=== PATIENT | male | born 1980 | race Caucasian/White ===

== ENCOUNTER 2017-06-29 09:28 | Inpatient (IN) | payer MEDICARE, OTHER ==
[~2017-06-29] VITALS: Ht 182.9 cm; Wt 84.2 kg
[~2017-06-29 09:28] MED LIST: ARIP1TAB5 PO; OXCA300 PO; OXCA600 PO; WELL150T PO
[2017-06-29 09:29] VITALS: BP 125/77; PULSE 98; RESP 18; TEMP 98.4; O2SAT 96
--- NOTE | 2017-06-29 09:46 | PD ---
HPI Chief Complaint: Psychiatric Symptoms Time Seen by Provider: 09:38 Travel History International Travel<30 days: No Contact w/Intl Traveler<30days: No Traveled to known affect area: No History of Present Illness HPI 36-year-old male presents voluntarily for psychiatric evaluation. He has been having major depression since December after losing his kids and his fiance. His kids are in an orphanage and his fiance left him. He has history of schizoaffective disorder and bipolar. He supposed be taking Zyprexa and Trileptal which she takes periodically because he doesn't want to mix it with all the alcohol he has been consuming. He says he drinks morning, noon and night everyday. Also admits to cocaine use and last used a few days ago. Reports suicidal ideation. Denies having a plan. Denies homicidal ideations. Denies visual or auditory hallucinations. Symptoms are alleviated with alcohol and cocaine use. Character of symptoms his depression and suicidal thoughts. Degree of symptoms as moderate to severe. Exacerbating factor is losing his kids and his fiance. No relieving factors. Denies significant past medical history. Has no emergent medical complaints. Denies chest pain, shortness breath, abdominal pain, fevers, vomiting. No other modifying factors or associated signs and symptoms. PFSH Past Medical History Asthma: No Bipolar Disorder: Yes Anxiety: Yes Depression: Yes Cancer: No Cardiovascular Problems: No Diabetes: No Diminished Hearing: No Endocrine: No Gastrointestinal Disorders: No Genitourinary: No Immune Disorder: No Implanted Vascular Access Dvce: No Insomnia: Yes Musculoskeletal: No Neurologic: No Psychiatric: Yes (BIPOLAR) Reproductive: No Respiratory: No Seizures: No Social History Alcohol Use: Yes (PT ADMITS TO DRINKING 5-6 BEERS DAILY, DRANK LAST NIGHT) Tobacco Use: Yes (Occassionally) Substance Use: No (DENIES) Allergies-Medications (Allergen,Severity, Reaction): Coded Allergies: No Known Allergies (Unverified , 12/20/13) Per pt. Reported Meds & Prescriptions Reported Meds & Active Scripts Active Reported Wellbutrin Sr (Bupropion HCl) 150 Mg Tab 150 Mg PO BID Trileptal 600 Mg Tab (Oxcarbazepine) 600 Mg Tab 600 Mg PO HS Trileptal 300 Mg Tab (Oxcarbazepine) 300 Mg Tab 300 Mg PO DAILY 30 Days Abilify (Aripiprazole) 10 Mg Tab 10 Mg PO BID Review of Systems Except as stated in HPI: all other systems reviewed are Neg Physical Exam Narrative GENERAL: Well-nourished, well-developed male patient, in no acute distress SKIN: Warm and dry. HEAD: Atraumatic. Normocephalic. EYES: Pupils equal and round. ENT: Mucosa pink and moist. NECK: Supple. Trachea midline. CARDIOVASCULAR: Regular rate and rhythm. No murmur appreciated. RESPIRATORY: No accessory muscle use. Clear to auscultation. Breath sounds equal bilaterally. GASTROINTESTINAL: Abdomen soft, non-tender, nondistended. Hepatic and splenic margins not palpable. Bowel sounds are active 4 quadrants. MUSCULOSKELETAL: No obvious deformities. No clubbing. No cyanosis. No edema. NEUROLOGICAL: Awake and alert. Oriented 3. No obvious cranial nerve deficits. Motor grossly within normal limits. Normal speech. Moves all extremities. 5/5 strength to all extremities. PSYCHIATRIC: No delusional thought processes. No hallucinations. Data Data Last Documented VS Vital Signs Date Time Temp Pulse Resp B/P (MAP) Pulse Ox O2 Delivery O2 Flow Rate FiO2 06/29/17 09:29 98.4 98 18 125/77 (93) 96 Room Air Orders Orders Complete Blood Count With Diff (06/29/17 09:39) Comprehensive Metabolic Panel (06/29/17 09:39) Psych Screen (06/29/17 09:39) Drug Screen, Random Urine (06/29/17 09:39) Alcohol (Ethanol) (06/29/17 09:39) Salicylates (Aspirin) (06/29/17 09:39) Tylenol (Acetaminophen) (06/29/17 09:39) MDM Medical Decision Making Medical Screen Exam Complete: Yes Emergency Medical Condition: Yes Medical Record Reviewed: Yes Differential Diagnosis Alcohol abuse, depression, bipolar, schizoaffective disorder, cocaine abuse, medical clearance for psychiatric evaluation Narrative Course Patient presents voluntarily. Physical examination and vital signs are essentially unremarkable. Patient has no medical complaints to report. Psych screen has been ordered. If the laboratory results are unremarkable, the patient will be medically cleared for psychiatric evaluation and disposition. Diagnosis Primary Impression: Medical clearance for psychiatric admission Condition: Stable Maame Herndon Jun 29, 2017 09:46
[2017-06-29] MEDS ORDERED: TRIL300T PO (10:00)
[2017-06-29] MEDS ORDERED: ZYPR10TA PO (10:00)
[2017-06-29 10:25] LABS: AUTOMATED NEUTROPHIL # 4.7 TH/MM3 (1.8-7.7); BASOPHIL % 0.3 % (0.0-2.0); EOSINOPHIL % 0.6 % (0.0-4.0); HEMATOCRIT 51.7 % (39.0-51.0); HEMOGLOBIN 17.6 GM/DL (13.0-17.0); LYMPH % 26.1 % (9.0-44.0); LYMPHOCYTE # 1.8 TH/MM3 (1.0-4.8); MEAN CELL VOLUME 92.6 FL (80.0-100.0); MEAN CORPUSCULAR HEMOGLOBIN 31.4 PG (27.0-34.0); MEAN PLATELET VOLUME 7.3 FL (7.0-11.0); MONO % 6.4 % (0.0-8.0); MONOCYTE # 0.5 TH/MM3 (0-0.9); NEUT % 66.6 % (16.0-70.0); PLATELET COUNT 261 TH/MM3 (150-450); RED BLOOD COUNT 5.58 MIL/MM3 (4.50-5.90); RED CELL DISTRIBUTION WIDTH 12.4 % (11.6-17.2)
[2017-06-29 10:43] LABS: ALBUMIN 4.3 GM/DL (3.4-5.0); AST (GOT) 25 U/L (15-37); BICARBONATE 27.1 MEQ/L (21.0-32.0); BLOOD UREA NITROGEN 13 MG/DL (7-18); CALCIUM 9.4 MG/DL (8.5-10.1); CHLORIDE 103 MEQ/L (98-107); CREATININE 1.12 MG/DL (0.60-1.30); GLOMERULAR FILTRATION RATE 74 ML/MIN (>89); GLUCOSE,RANDOM 82 MG/DL (74-106); SODIUM (NA) 138 MEQ/L (136-145)
[2017-06-29 10:46] LABS: ALKALINE PHOSPHATASE 92 U/L (45-117); ALT (GPT) 34 U/L (12-78); TOTAL BILIRUBIN ADULT 0.8 MG/DL (0.2-1.0); TOTAL PROTEIN 8.5 GM/DL (6.4-8.2)
[2017-06-29 10:49] LABS: ACETAMINOPHEN LESS THAN 2.0 MCG/ML (10.0-30.0)
[2017-06-29 12:37] VITALS: BP 125/80; PULSE 95; RESP 16; TEMP 98.5; O2SAT 98
[2017-06-29] MEDS ORDERED: cloNIDine HCL 0.1 MG TAB PO ONE (16:15)
[2017-06-29] MEDS ORDERED: hydrOXYzine HCL 50 MG TAB PO ONE (16:15)
[2017-06-29] MEDS ORDERED: LORazepam 2 MG/ML VIAL IM PRN (16:30)
[2017-06-29] MEDS ORDERED: MAGNESIUM HYDROXIDE SUSP 30 ML CUP PO PRN (16:30)
[2017-06-29] MEDS ORDERED: ACETAMINOPHEN 325 MG TAB PO PRN (16:30)
[2017-06-29] MEDS ORDERED: ALUMINUM/MAGNESIUM/SIMETH 30 ML CUP PO PRN (16:30)
[2017-06-29] MEDS ORDERED: hydrOXYzine HCL 50 MG TAB PO PRN (16:30)
[2017-06-29] MEDS ORDERED: traZODone HCL 50 MG TAB PO PRN (16:30)
--- NOTE | 2017-06-29 16:31 | HHI.HP ---
Provisional Diagnosis Admission Date [place] I. Adjustment disorder with depressed mood Certification of Person's Competence To Provide Express and Informed Consent I have personally examined Adalberto Scott , a person being served at [facility] on, Jun 29, 2017 16:21. Express and informed consent means consent voluntarily given in writing, by a competent person, after sufficient explanation and disclosure of the subject matter involved to enable the person to make a knowing and willful decision without any element of force, fraud, deceit, duress, or other form of constraint or coercion. This person is 18 years of age or older, is not now known to be incompetent to consent to treatment with a guardian advocate, and does not have a health care surrogate or proxy currently making medical treatment decisions. I have found this person to be one of the following: [X] Competent to provide express and informed consent, as defined above, for voluntary admission to this facility and is competent to provide express and informed consent for treatment. He/she has the consistent capacity to make well reasoned, willful, and knowing decisions concerning his or her medical or mental health treatment. The person fully and consistently understands the purpose of the admission for examination/placement and is fully capable of personally exercising all rights assured [place] Incompetent to provide express and informed consent to voluntary admission, and this is incompetent to provide express and informed consent to treatment. The person must be transferred to involuntary status and a petition for a guardian advocate filed with the Circuit Court. [] Refusing to provide express and informed consent to voluntary admission but is competent to provide express and informed consent for treatment. The person must be discharged or transferred to involuntary status. Form shall be completed within 24 hours of a person's arrival at the receiving facility and filed in the clinical record of each person: 1. Admitted on a voluntary basis 2. Permitted to provide express and informed consent to his/her own treatment 3. Allowed to transfer from involuntary to voluntary status 4. Prior to permitting a person to consent to his or her own treatment after having been previously found incompetent to consent to treatment. History of Present Illness Capacity: Has Capacity HPI 36-year-old male presents voluntarily with history of schizoaffective disorder, bipolar disorder, major depression, etc. At this time the patient is complaining of multiple symptoms of depression with suicidal ideation. Although he does not have an active plan to harm himself, he reports if released he may attempt to overdose on his medication, walk into traffic, overdose on alcohol and drugs, etc. The patient moved from [place] to [place] approximately one month ago. He lost his children, who are currently staying in an orphanage and his fiance left him. He thought he might feel better by moving to [place], but that has not been the case. In fact, he describes increasing symptoms of depression over the last month, which include depressed mood, anhedonia, loss of energy, feelings of hopelessness and helplessness, increasing anxiety, initial and middle insomnia, loss of appetite, loss of self- esteem and suicidal thoughts. He is unable to contract for safety at this time. He has been self-medicating over the last month with an average of 8 beers a day and intermittent use of cocaine. He is not employed but receives some type of disability check and some financial assistance from his father, who remains in [place]. Review of Systems Psychiatric: COMPLAINS OF: Anxiety, Depression, Suicidal Ideation Except as stated in HPI: all other systems reviewed are Neg Past Psych History Psychological trauma history Patient feels psychologically traumatized from losing his children and his fianc e. Violence risk - others (6 mos) Minimal Violence risk - self (6 mos) High Substance Abuse History Drugs/Alcohol past 12 months Intermittent abuse of alcohol and cocaine. Past Family Social History Coded Allergies: No Known Allergies (Unverified Adverse Reaction, Unknown, 06/29/17) Per pt. Reported Medications Olanzapine (Zyprexa) 10 Mg Tab, 10 MG PO HS, #30 TAB 0 Refills 06/29/17 Oxcarbazepine (Trileptal) 300 Mg Tab, 300 MG PO BID for Seizure Control, #60 TAB 0 Refills 06/29/17 Discontinued Reported Medications Bupropion Hcl (Wellbutrin Sr) 150 Mg Tab, 150 MG PO BID, TAB 01/06/14 Oxcarbazepine (Trileptal 600 Mg Tab) 600 Mg Tab, 600 MG PO HS, TAB 01/06/14 Oxcarbazepine (Trileptal 300 Mg Tab) 300 Mg Tab, 300 MG PO DAILY for 30 Days, TAB 01/06/14 Abilify (Abilify) 10 Mg Tab, 10 MG PO BID, TAB 01/06/14 Family Psych History Positive for mood and anxiety disorders. Social History As stated above, the patient is abusing alcohol and cocaine at the present time. His only family support is his father, who currently resides in [place]. The patient was never but his fianc has left him. He has to young children who are in the custody of the state of [place]. He is unemployed and dependent on his father for financial support. Patient's Strengths (min. 2) Verbal and has access to healthcare. Physical Exam GENERAL: SKIN: Warm and dry. HEAD: Normocephalic. EYES: No scleral icterus. No injection or drainage. NECK: Supple, trachea midline. No JVD or lymphadenopathy. CARDIOVASCULAR: Regular rate and rhythm without murmurs, gallops, or rubs. RESPIRATORY: Breath sounds equal bilaterally. No accessory muscle use. GASTROINTESTINAL: Abdomen soft, non-tender, nondistended. MUSCULOSKELETAL: No cyanosis, or edema. BACK: Nontender without obvious deformity. No CVA tenderness. Vital Signs Vital Signs Date Time Temp Pulse Resp B/P (MAP) Pulse Ox O2 Delivery O2 Flow Rate FiO2 06/29/17 12:37 98.5 95 16 125/80 (95) 98 06/29/17 09:29 Room Air Lab Results Test 06/29/17 10:00 06/29/17 10:05 White Blood Count 7.0 TH/MM3 Red Blood Count 5.58 MIL/MM3 Hemoglobin 17.6 GM/DL Hematocrit 51.7 % Mean Corpuscular Volume 92.6 FL Mean Corpuscular Hemoglobin 31.4 PG Mean Corpuscular Hemoglobin Concent 34.0 % Red Cell Distribution Width 12.4 % Platelet Count 261 TH/MM3 Mean Platelet Volume 7.3 FL Neutrophils (%) (Auto) 66.6 % Lymphocytes (%) (Auto) 26.1 % Monocytes (%) (Auto) 6.4 % Eosinophils (%) (Auto) 0.6 % Basophils (%) (Auto) 0.3 % Neutrophils # (Auto) 4.7 TH/MM3 Lymphocytes # (Auto) 1.8 TH/MM3 Monocytes # (Auto) 0.5 TH/MM3 Eosinophils # (Auto) 0.0 TH/MM3 Basophils # (Auto) 0.0 TH/MM3 CBC Comment DIFF FINAL Differential Comment Blood Urea Nitrogen 13 MG/DL Creatinine 1.12 MG/DL Random Glucose 82 MG/DL Total Protein 8.5 GM/DL Albumin 4.3 GM/DL Calcium Level 9.4 MG/DL Alkaline Phosphatase 92 U/L Aspartate Amino Transf (AST/SGOT) 25 U/L Alanine Aminotransferase (ALT/SGPT) 34 U/L Total Bilirubin 0.8 MG/DL Sodium Level 138 MEQ/L Potassium Level 4.2 MEQ/L Chloride Level 103 MEQ/L Carbon Dioxide Level 27.1 MEQ/L Anion Gap 8 MEQ/L Estimat Glomerular Filtration Rate 74 ML/MIN Salicylates Level LESS THAN 1.7 MG/DL Acetaminophen Level LESS THAN 2.0 MCG/ML Ethyl Alcohol Level 20 MG/DL Urine Opiates Screen NEG Urine Barbiturates Screen NEG Urine Amphetamines Screen NEG Urine Benzodiazepines Screen NEG Urine Cocaine Screen POS Urine Cannabinoids Screen NEG Mental Status Examination Appearance: Appropriate Consciousness: Alert Orientation: x4 Motor Activity: Normal gait Speech: Rapid Language: Adequate Fund of Knowledge: Adequate Attention and Concentration: Inadequate Memory: Unremarkable Mood: Sad, Anxious Affect: Sad, Anxious Thought Process & Associations: Circumstantial Thought Content: Preoccupations Hallucination Type: None Delusion Type: None Suicidal Ideation: Yes Suicidal Plan: Yes Suicidal Intention: No Homicidal Ideation: No Homicidal Plan: No Homicidal Intention: No Insight: Fair Judgment: Impulsive Assessment & Plan Problem List: (1) Adjustment disorder with depressed mood ICD Codes: F43.21 - Adjustment disorder with depressed mood Assessment & Plan Estimated LOS: days. 36-year-old male presents with multiple symptoms of depression, suicidality and plan. His only family support is his father, who resides in [place]. He has lost his fianc and his children and has been self- medicating with alcohol and cocaine. He is felt to be at high risk for self- harm and therefore is being admitted for further evaluation and treatment. This physician has ordered a CBC and comprehensive metabolic panel to determine if any infectious process or metabolic process is causing or contributing to his depression. Additionally, this physician ordered thyroid stimulating hormone, vitamin B-12 and vitamin D levels to determine if any deficiencies in these areas are causing or contributing to his depression. This physician has also ordered an EKG to determine the patient's cardiac conduction status prior to initiating significant changes in psychotropic medicines which might adversely affect the electrical system of his heart. This physician spoke with the patient's nurse, Magen, regarding his recent behavior. The patient is very anxious and close to hysterical, necessitating close observation upon admission. Finally, case management will be involved to assist with further information gathering and disposition planning, including assistance with travel plans back to [place]. Beka Madden MD Jun 29, 2017 16:31
[2017-06-29 19:30] VITALS: BP 113/71; PULSE 92; RESP 16; TEMP 98.4; O2SAT 96
[2017-06-29 20:25] VITALS: BP 115/74; PULSE 104; RESP 17; TEMP 98.9; O2SAT 97
[2017-06-30 05:43] VITALS: BP 111/65; PULSE 88; RESP 18; TEMP 97.7; O2SAT 100
[2017-06-30] MEDS: LORazepam 1 MG TAB PO PRN ×2 (09:19→15:51)
[2017-06-30 12:52] LABS: AUTOMATED NEUTROPHIL # 2.4 TH/MM3 (1.8-7.7); BASOPHIL % 0.5 % (0.0-2.0); EOSINOPHIL # 0.1 TH/MM3 (0-0.4); EOSINOPHIL % 1.7 % (0.0-4.0); HEMATOCRIT 47.3 % (39.0-51.0); HEMOGLOBIN 16.4 GM/DL (13.0-17.0); LYMPH % 36.6 % (9.0-44.0); LYMPHOCYTE # 1.6 TH/MM3 (1.0-4.8); MEAN CELL VOLUME 93.2 FL (80.0-100.0); MEAN CORPUSCULAR HEMOGLOBIN 32.2 PG (27.0-34.0); MEAN CORPUSCULAR HGB CONC 34.6 % (32.0-36.0); MEAN PLATELET VOLUME 7.9 FL (7.0-11.0); MONO % 8.3 % (0.0-8.0); MONOCYTE # 0.4 TH/MM3 (0-0.9); NEUT % 52.9 % (16.0-70.0); PLATELET COUNT 221 TH/MM3 (150-450); RED BLOOD COUNT 5.08 MIL/MM3 (4.50-5.90); RED CELL DISTRIBUTION WIDTH 12.4 % (11.6-17.2); WHITE BLOOD COUNT 4.5 TH/MM3 (4.0-11.0)
[2017-06-30 13:46] LABS: ALBUMIN 3.6 GM/DL (3.4-5.0); ALKALINE PHOSPHATASE 89 U/L (45-117); ALT (GPT) 29 U/L (12-78); AST (GOT) 17 U/L (15-37); BLOOD UREA NITROGEN 13 MG/DL (7-18); CHLORIDE 103 MEQ/L (98-107); CHOLESTEROL 118 MG/DL (120-200); CHOLESTEROL/ HDL RATIO 3.39 RATIO; CREATININE 1.19 MG/DL (0.60-1.30); GLOMERULAR FILTRATION RATE 69 ML/MIN (>89); GLUCOSE,RANDOM 95 MG/DL (74-106); HDL CHOLESTEROL 34.8 MG/DL (40.0-60.0); LDL CHOLESTEROL 38 MG/DL (0-99); SODIUM (NA) 140 MEQ/L (136-145); TOTAL BILIRUBIN ADULT 0.8 MG/DL (0.2-1.0); TOTAL PROTEIN 7.2 GM/DL (6.4-8.2); TRIGLYCERIDES 224 MG/DL (42-150)
--- NOTE | 2017-06-30 14:50 | HHI.PYPN ---
Subjective Remarks Patient was seen and case discussed with nursing. EKG showed a possible right ventricular hypertrophy we will consult medicine. Patient describes a strange heartbeat while he uses cocaine. Patient is very inquisitive about his history medications and we agreed on a trial of latuda. Patient describes various stressors occluding people on the streets. Affect is anxious. He denies suicidal homicidal ideation intent or plan. He is somatically preoccupied believing that he is underweight despite being told he has a normal BMI Mental Status Examination Appearance: Appropriate Consciousness: Alert Orientation: x4 Motor Activity: Normal gait Speech: Rapid Language: Adequate Fund of Knowledge: Adequate Attention and Concentration: Inadequate Memory: Unremarkable Mood: Sad, Anxious Affect: Appropriate, Anxious Thought Process & Associations: Circumstantial Thought Content: Preoccupations Hallucination Type: None Delusion Type: None Suicidal Ideation: No Suicidal Plan: No Suicidal Intention: No Homicidal Ideation: No Homicidal Plan: No Homicidal Intention: No Insight: Fair Judgment: Impulsive Results Labs Test 06/30/17 12:02 White Blood Count 4.5 TH/MM3 Red Blood Count 5.08 MIL/MM3 Hemoglobin 16.4 GM/DL Hematocrit 47.3 % Mean Corpuscular Volume 93.2 FL Mean Corpuscular Hemoglobin 32.2 PG Mean Corpuscular Hemoglobin Concent 34.6 % Red Cell Distribution Width 12.4 % Platelet Count 221 TH/MM3 Mean Platelet Volume 7.9 FL Neutrophils (%) (Auto) 52.9 % Lymphocytes (%) (Auto) 36.6 % Monocytes (%) (Auto) 8.3 % Eosinophils (%) (Auto) 1.7 % Basophils (%) (Auto) 0.5 % Neutrophils # (Auto) 2.4 TH/MM3 Lymphocytes # (Auto) 1.6 TH/MM3 Monocytes # (Auto) 0.4 TH/MM3 Eosinophils # (Auto) 0.1 TH/MM3 Basophils # (Auto) 0.0 TH/MM3 CBC Comment DIFF FINAL Differential Comment Blood Urea Nitrogen 13 MG/DL Creatinine 1.19 MG/DL Random Glucose 95 MG/DL Total Protein 7.2 GM/DL Albumin 3.6 GM/DL Calcium Level 9.0 MG/DL Alkaline Phosphatase 89 U/L Aspartate Amino Transf (AST/SGOT) 17 U/L Alanine Aminotransferase (ALT/SGPT) 29 U/L Total Bilirubin 0.8 MG/DL Sodium Level 140 MEQ/L Potassium Level 3.7 MEQ/L Chloride Level 103 MEQ/L Carbon Dioxide Level 30.0 MEQ/L Anion Gap 7 MEQ/L Estimat Glomerular Filtration Rate 69 ML/MIN Hemoglobin A1c 5.0 % Triglycerides Level 224 MG/DL Cholesterol Level 118 MG/DL LDL Cholesterol 38 MG/DL HDL Cholesterol 34.8 MG/DL Cholesterol/HDL Ratio 3.39 RATIO Vitamin B12 Level 468 PG/ML 25-Hydroxy Vitamin D Total 22.5 ng/ML Thyroid Stimulating Hormone 3rd Gen 0.386 uIU/ML Vitals/IOs Vital Signs Date Time Temp Pulse Resp B/P (MAP) Pulse Ox O2 Delivery O2 Flow Rate FiO2 06/30/17 05:43 97.7 88 18 111/65 (80) 100 06/29/17 19:30 Room Air Assessment & Plan Problem List: (1) Adjustment disorder with depressed mood ICD Codes: F43.21 - Adjustment disorder with depressed mood Assessment & Plan Start latuda 40 mg with dinner. Medical consult Justification for Cont. Inpt. Patient would decompensate in a less restrictive setting Evan Palacio DO Jun 30, 2017 14:50
[2017-06-30 16:19] VITALS: BP 123/69; PULSE 85; RESP 18; TEMP 98.2; O2SAT 96
[2017-06-30] MEDS: LURASIDONE 40 MG TAB PO SCH (17:05)
[2017-07-01 05:14] VITALS: BP 102/61; PULSE 60; RESP 18; TEMP 97.6; O2SAT 97
[2017-07-01] MEDS: LORazepam 1 MG TAB PO PRN (08:56)
--- NOTE | 2017-07-01 13:14 | HHI.PYPN ---
Subjective Remarks Patient was seen and case discussed with nursing. Patient has a plan to go to a sober house in [place] and wants assistance from the social contact worker setting that up. Started on latuda yesterday and is tolerating it well. Mood has improved and he denies suicidal or homicidal ideation intent or plan. Insight is slowly improving. Behaving well on the unit Mental Status Examination Appearance: Appropriate Consciousness: Alert Orientation: x4 Motor Activity: Normal gait Speech: Rapid Language: Adequate Fund of Knowledge: Adequate Attention and Concentration: Inadequate Memory: Unremarkable Mood: Sad, Anxious Affect: Appropriate, Anxious Thought Process & Associations: Circumstantial Thought Content: Preoccupations Hallucination Type: None Delusion Type: None Suicidal Ideation: No Suicidal Plan: No Suicidal Intention: No Homicidal Ideation: No Homicidal Plan: No Homicidal Intention: No Insight: Fair Judgment: Impulsive Results Vitals/IOs Vital Signs Date Time Temp Pulse Resp B/P (MAP) Pulse Ox O2 Delivery O2 Flow Rate FiO2 07/01/17 05:14 97.6 60 18 102/61 (75) 97 06/29/17 19:30 Room Air Assessment & Plan Problem List: (1) Adjustment disorder with depressed mood ICD Codes: F43.21 - Adjustment disorder with depressed mood Assessment & Plan Continue current treatment plan Justification for Cont. Inpt. Patient will decompensate in a less restrictive setting Evan Palacio DO Jul 01, 2017 13:14
--- NOTE | 2017-07-01 13:45 | EKG ---
Date Performed: 06/30/2017 Time Performed: 12:11:13 PTAGE: 36 years EKG: OVERALL AXIS RIGHTWARD INCOMPLETE RIGHT BUNDLE BRANCH BLOCK PATTERN ABNORMAL ECG NO PREVIOUS TRACING DOCTOR: Beka Bauman Interpretating Date/Time 07/01/2017 13:44:51
[2017-07-01 16:02] VITALS: BP 126/74; PULSE 81; RESP 18; TEMP 98.4; O2SAT 97
[2017-07-01] MEDS: LURASIDONE 40 MG TAB PO SCH (16:54)
--- NOTE | 2017-07-01 17:03 | PD.CONS ---
HPI Service [facility] Hospitalists Consult Requested By Dr. Madden Reason for Consult Abnormal ekg Primary Care Physician No Primary Care Physician Diagnoses: (1) Adjustment disorder with depressed mood (2) Schizoaffective disorder History of Present Illness 36 Y/O male admitted to the psychiatric unit for schizoaffective disorder. Patient had a twelve lead EKG that shows incomplete right bundle branch block. Hospitalist service consulted for evaluation. Chart reviewed, the patient denies any cardiac symptoms. No episodes of chest pain or shortness of breath. He denies any family history of heart disease. No LE edema. No palpitations. Never had syncope. Describe himself as fit. Review of Systems Cardiovascular: DENIES: Chest pain, Palpitations Except as stated in HPI: all other systems reviewed are Neg Past Family Social History Allergies: Coded Allergies: No Known Allergies (Unverified Allergy, Unknown, 06/29/17) Per pt. Past Medical History Schizoaffective disorder. Past Surgical History None Reported Medications Reported Meds & Active Scripts Active Latuda (Lurasidone) 40 Mg Tab 40 Mg PO DAILY@1700 Reported Zyprexa (Olanzapine) 10 Mg Tab 10 Mg PO HS Trileptal (Oxcarbazepine) 300 Mg Tab 300 Mg PO BID Family History Reviewed and found to be noncontributory. Social History Patient admits to drinking alcohol. Sometimes binge drinking. He also reports using cocaine intermittently. He denies IV drug use. Physical Exam Vital Signs Vital Signs Date Time Temp Pulse Resp B/P (MAP) Pulse Ox O2 Delivery O2 Flow Rate FiO2 07/01/17 16:02 98.4 81 18 126/74 (91) 97 07/01/17 05:14 97.6 60 18 102/61 (75) 97 Physical Exam GENERAL: This is a well-nourished, well-developed patient, in no apparent distress. SKIN: No rashes, ecchymoses or lesions. Cool and dry. HEAD: Atraumatic. Normocephalic. No temporal or scalp tenderness. EYES: Pupils equal round and reactive. Extraocular motions intact. No scleral icterus. No injection or drainage. ENT: Nose without bleeding, purulent drainage or septal hematoma. Throat without erythema, tonsillar hypertrophy or exudate. Uvula midline. Airway patent. NECK: Trachea midline. No JVD or lymphadenopathy. Supple, nontender, no meningeal signs. CARDIOVASCULAR: Regular rate and rhythm without murmurs, gallops, or rubs. RESPIRATORY: Clear to auscultation. Breath sounds equal bilaterally. No wheezes , rales, or rhonchi. GASTROINTESTINAL: Abdomen soft, non-tender, nondistended. No hepato-splenomegaly , or palpable masses. No guarding. MUSCULOSKELETAL: Extremities without clubbing, cyanosis, or edema. No joint tenderness, effusion, or edema noted. No calf tenderness. Negative Homans sign bilaterally. NEUROLOGICAL: Awake and alert. Cranial nerves II through XII intact. Motor and sensory grossly within normal limits. Five out of 5 muscle strength in all muscle groups. Normal speech. Result Diagram: 06/30/17 1202 06/30/17 1202 Assessment and Plan Assessment and Plan 36 Y/O male admitted to the psychiatric unit for schizoaffective disorder. Hospitalist service consulted for abnormal EKG. I personally reviewed EKG. Shows incomplete right bundle branch block. The patient is asymptomatic and is fairly young. No further cardiac workup is indicated at this point. He was counseled against alcohol and illicit drug use. Will sign off. Please call or reconsult with questions Steven Mascorro MD Jul 01, 2017 17:03
[2017-07-02 06:35] VITALS: BP 99/57; PULSE 61; RESP 16; TEMP 97.6; O2SAT 98
--- NOTE | 2017-07-02 10:09 | HHI.PYPN ---
Subjective Remarks On psychiatric evaluation today patient is calm, cooperative, he seems to be objectively depressed. Case was discussed with nursing charge. Patient reports that he has increased sense of worthless, hopelessness, helplessness. He has been feeling a little better in the unit. He feels that he has no options in life. He reports that his life would be much better if he were in individual his father. Patient is asking for assistance and social worker assistant orientation to go back to [place] or going to a rehabilitation program. Patient reports better sleep in the unit, good appetite, he has been taking his medication. He does report suicidal thoughts, he says that he doesn't feel ready to be discharged to the community "due to these bad thoughts". No behavioral dysregulation reported in the unit. Patient is compliant with his medications. Mental Status Examination Appearance: Appropriate Consciousness: Alert Orientation: x4 Motor Activity: Normal gait Speech: Rapid Language: Adequate Fund of Knowledge: Adequate Attention and Concentration: Inadequate Memory: Unremarkable Mood: Sad, Anxious Affect: Appropriate, Anxious Thought Process & Associations: Circumstantial Thought Content: Preoccupations Hallucination Type: None Delusion Type: None Suicidal Ideation: No Suicidal Plan: No Suicidal Intention: No Homicidal Ideation: No Homicidal Plan: No Homicidal Intention: No Insight: Fair Judgment: Impulsive Results Vitals/IOs Vital Signs Date Time Temp Pulse Resp B/P (MAP) Pulse Ox O2 Delivery O2 Flow Rate FiO2 07/02/17 06:35 97.6 61 16 99/57 (71) 98 06/29/17 19:30 Room Air Intake and Output 07/02/17 07/02/17 07/03/17 08:00 16:00 00:00 Intake Total 240 ml Balance 240 ml Assessment & Plan Problem List: (1) Adjustment disorder with depressed mood ICD Codes: F43.21 - Adjustment disorder with depressed mood Assessment & Plan: Brief supportive psychotherapy and motivation provided. Continue current psychotropic regimen. Follow-up medical recommendations due to abnormal EKG findings. Labs and vital signs reviewed. structural worker intervention to coordinating a safe discharge planning. Assessment & Plan Estimated LOS: days Justification for Cont. Inpt. Patient has a high risk to decompensate at a lower level of care. Miquel Walker MD Jul 02, 2017 10:09
[2017-07-02] MEDS: LURASIDONE 40 MG TAB PO SCH (16:56)
[2017-07-02 18:25] VITALS: BP 138/79; PULSE 89; RESP 16; TEMP 97.7; O2SAT 98
[2017-07-02] MEDS: LORazepam 1 MG TAB PO PRN (20:05)
[2017-07-03 06:04] VITALS: BP 107/58; PULSE 66; RESP 16; TEMP 97.7; O2SAT 97
[2017-07-03] MEDS ORDERED: LURA40 PO (10:59)
--- NOTE | 2017-07-03 11:12 | HHI.DS ---
Psychiatry Discharge Summary Inpatient Psychiatric care?: Yes Advance Directive: No Reason Not Provided: not interested Mental Health AdvanceDirective: No Health Care Proxy: No Admission Admission Date Jun 29, 2017 at 16:19 Admission Diagnosis: (1) Adjustment disorder with depressed mood ICD Code: F43.21 - Adjustment disorder with depressed mood (2) Schizoaffective disorder ICD Code: F25.9 - Schizoaffective disorder Brief History 36-year-old male presents voluntarily with history of schizoaffective disorder, bipolar disorder, major depression, etc. At this time the patient is complaining of multiple symptoms of depression with suicidal ideation. Although he does not have an active plan to harm himself, he reports if released he may attempt to overdose on his medication, walk into traffic, overdose on alcohol and drugs, etc. The patient moved from [place] to [place] approximately one month ago. He lost his children, who are currently staying in an orphanage and his fiance left him. He thought he might feel better by moving to [place], but that has not been the case. In fact, he describes increasing symptoms of depression over the last month, which include depressed mood, anhedonia, loss of energy, feelings of hopelessness and helplessness, increasing anxiety, initial and middle insomnia, loss of appetite, loss of self- esteem and suicidal thoughts. He is unable to contract for safety at this time. He has been self-medicating over the last month with an average of 8 beers a day and intermittent use of cocaine. He is not employed but receives some type of disability check and some financial assistance from his father, who remains in [place]. Tobacco Use In Past 30 Days: No Tobacco Past 30 Days Alcohol Use: 4 or More Times Per Week Hospital Course Patient was admitted initially voluntarily due to symptoms of depression and suicidal ideation. Psychiatric and psychosocial assessment completed. Safety measures taken. Patient was restarted in lurasidone 20 mg , individual and group activities. He was also started in [facility]. Patient showed good response without significant side effects to medications and therapist. During his hospitalization patient was mostly calm, cooperative, without any agitation or aggressive behavior reported. Once the patient's suicidal ideation decreased and he was feeling safe, discharge planning was started. Patient expressed motivation to be referred to a rehabilitation program for alcohol. Was widely educated about the importance of keep his sobriety. The moment of discharge, no suicidal ideation, homicidal ideation, no visual or auditory hallucinations reported. Results Blood Pressure 107 / 58 Vital Signs Date Time Temp Pulse Resp B/P (MAP) Pulse Ox O2 Delivery O2 Flow Rate FiO2 07/03/17 06:04 97.7 66 16 107/58 (74) 97 06/29/17 19:30 Room Air Laboratory Tests Test 06/30/17 12:02 Monocytes (%) (Auto) 8.3 % (0.0-8.0) Estimat Glomerular Filtration Rate 69 ML/MIN (>89) Triglycerides Level 224 MG/DL (42-150) Cholesterol Level 118 MG/DL (120-200) HDL Cholesterol 34.8 MG/DL (40.0-60.0) 25-Hydroxy Vitamin D Total 22.5 ng/ML (30-100) Laboratory Results Test 06/30/17 12:02 Cholesterol Level 118 MG/DL (120-200) HDL Cholesterol 34.8 MG/DL (40.0-60.0) Hemoglobin A1c 5.0 % (4.3-6.0) LDL Cholesterol 38 MG/DL (0-99) Triglycerides Level 224 MG/DL (42-150) Summary of Major Lab Results Reviewed Summary of Procedures reviewed Pending results at discharge: No Medications # of Antipsychotic meds at D/C: 1 Approp Antipsych med options 1 - Minimum of three failed multiple trials of monotherapy. 2 - Documented plan to taper to monotherapy due to previous use of multiple meds OR cross-taper in progress at D/C. 3 - Documentation of augmentation of Clozapine. 4 - Justification other than those listed in allowable values 1-3, document here : Discharge Discharge Date: Jul 03, 2017 Discharge Diagnosis: (1) Adjustment disorder with depressed mood ICD Code: F43.21 - Adjustment disorder with depressed mood Pt Condition on Discharge: Stable Discharge Disposition: Discharge Home Discharge Instructions Diet Instructions: Heart Healthy Diet Activities you can perform: Weight Bearing as Cesilia Scheduled Appointment: Edy Fuller Appointment Date: Jul 04, 2017 Appointment Time: 7:30 a.m. Discharge Time > 30 minutes Mental Status Examination Appearance: Appropriate Consciousness: Alert Orientation: x4 Motor Activity: Normal gait Speech: Rapid Language: Adequate Fund of Knowledge: Adequate Attention and Concentration: Inadequate Memory: Unremarkable Mood: Sad, Anxious Affect: Appropriate, Anxious Thought Process & Associations: Circumstantial Thought Content: Preoccupations Hallucination Type: None Delusion Type: None Suicidal Ideation: No Suicidal Plan: No Suicidal Intention: No Homicidal Ideation: No Homicidal Plan: No Homicidal Intention: No Insight: Fair Judgment: Impulsive Discharge/Advance Care Plan Health Problems: (1) Adjustment disorder with depressed mood Goals to promote your health * To prevent worsening of your condition and complications * To maintain your health at the optimal level Directions to meet your goals Take your medications as prescribed Follow your dietary instruction Follow activity as directed Keep your appointments as scheduled Take your immunizations and boosters as scheduled If your symptoms worsen call your PCP, if no PCP go to Urgent Care Center or Emergency Room For 15/01 questions related to your inpatient stay or results of tests pending at discharge, please contact Dr. Miquel Walker at Smoking is Dangerous to Your Health. Avoid second hand smoking Miquel Walker MD Jul 03, 2017 11:12
== END 2017-07-03 12:45 | disposition home or self-care (01) | DRG 881 ==
LOC: NEPD 09:28 → NEDA 16:19 → H260 20:25
PROVIDERS: ADMIT Psychiatry & Neurology Psychiatry; ATTEND Psychiatry & Neurology Psychiatry
DX: F43.21 Adjustment disorder with depressed mood (principal); R45.851 Suicidal ideations; I45.10 Unspecified right bundle-branch block; F14.10 Cocaine abuse, uncomplicated; F10.10 Alcohol abuse, uncomplicated; Y90.1 Blood alcohol level of 20-39 mg/100 ml
CPT/HCPCS: 80053; 80061; 80307; 82306; 82607; 83036; 84443; 85025; 93005; 99285

== ENCOUNTER 2017-07-17 03:02 | Emergency (ER) | payer MEDICARE, OTHER ==
[~2017-07-17] VITALS: Ht 182.9 cm; Wt 75.0 kg
[~2017-07-17 03:02] MED LIST changes: -ARIP1TAB5 PO; +LURA40 PO; -OXCA300 PO; -OXCA600 PO; +TRIL300T PO; -WELL150T PO; +ZYPR10TA PO
[2017-07-17 03:09] VITALS: BP 136/81; PULSE 86; RESP 16; TEMP 98.7; O2SAT 98
[2017-07-17 03:29] VITALS: O2SAT 97
--- NOTE | 2017-07-17 03:42 | RADRPT ---
EXAM DATE/TIME: 07/17/2017 03:32 [facility] COMPARISON: No previous studies available for comparison. INDICATIONS : Chest pain. MEDICAL HISTORY : None. SURGICAL HISTORY : None. ENCOUNTER: Initial ACUITY: 1 day PAIN SCORE: 6/10 LOCATION: Bilateral chest FINDINGS: A single view of the chest demonstrates the lungs to be symmetrically aerated without evidence of mas s, infiltrate or effusion. The cardiomediastinal contours are unremarkable. Osseous structures are intact. CONCLUSION: The lungs are clear. Bala Brar MD on July 17, 2017 at 3:40 Board Certified Radiologist. This report was verified electronically.
[2017-07-17 04:01] LABS: BILIRUBIN, URINE NEG (NEG); BLOOD, URINE NEG (NEG); GLUCOSE,URINE NEG (NEG); HYALINE CAST, URINE 6 /lpf (RARE); KETONE, URINE TRACE mg/dL (NEG); MUCUS URINE MOD /lpf (OCC); NITRITE,URINE NEG (NEG); SQUAMOUS EPITHELIAL CELL URINE <1 /hpf (0-5); URINE COLOR YELLOW (YELLW/STRAW); URINE LEUKOCYTE ESTERASE NEG (NEG)
[2017-07-17 04:05] LABS: AUTOMATED NEUTROPHIL # 3.3 TH/MM3 (1.8-7.7); BASOPHIL # 0.1 TH/MM3 (0-0.2); EOSINOPHIL # 0.1 TH/MM3 (0-0.4); EOSINOPHIL % 0.9 % (0.0-4.0); HEMATOCRIT 47.6 % (39.0-51.0); HEMOGLOBIN 16.7 GM/DL (13.0-17.0); LYMPH % 35.8 % (9.0-44.0); LYMPHOCYTE # 2.2 TH/MM3 (1.0-4.8); MEAN CELL VOLUME 92.6 FL (80.0-100.0); MEAN CORPUSCULAR HEMOGLOBIN 32.6 PG (27.0-34.0); MEAN CORPUSCULAR HGB CONC 35.2 % (32.0-36.0); MEAN PLATELET VOLUME 7.8 FL (7.0-11.0); MONO % 8.9 % (0.0-8.0); MONOCYTE # 0.6 TH/MM3 (0-0.9); NEUT % 53.4 % (16.0-70.0); PLATELET COUNT 230 TH/MM3 (150-450); RED BLOOD COUNT 5.14 MIL/MM3 (4.50-5.90); RED CELL DISTRIBUTION WIDTH 13.3 % (11.6-17.2); WHITE BLOOD COUNT 6.2 TH/MM3 (4.0-11.0)
--- NOTE | 2017-07-17 04:15 | PD ---
HPI Chief Complaint: Abdominal Pain Time Seen by Provider: 03:14 Travel History International Travel<30 days: No Contact w/Intl Traveler<30days: No Traveled to known affect area: No History of Present Illness HPI The patient is a 36 year old male who presents to the [facility] emergency department with a history of palpitations, abdominal pain, and worsening psychiatric problems. The patient denies having any suicidal ideations, however he reports that he is abusing alcohol daily and he feels like, "I am drinking myself to ". The patient is requesting assistance with getting into a detox program. The patient reports that he just moved to the area May 25 from [place]. He reports that he is drinking approximately 9 beers daily. He also reports that he uses cocaine whenever he can afford it. He reports that he last used cocaine 4 days ago. The patient reports that his abdominal pain is in the midepigastric area. He reports that over the last few weeks he has had nausea vomiting 1 time per day. He reports that he is concerned that he may be losing weight. He denies having any diarrhea. The patient was last admitted to the hospital earlier in June for psychiatric disorder. The patient reports that he received a prescription for Latuda, however he has not filled the prescription. I review systems otherwise, the patient denies having any known fevers, cough, congestion, neck pain, chest pain , shortness of breath, or neurologic symptoms. The patient reports that the abdominal pain is in the midepigastric area. He reports it is a burning sensation that seems to come and go. [facility] Past Medical History Narrative Medical The patient's past medical history is significant for bipolar disorder, schizoaffective disorder, alcohol abuse, cocaine use. Asthma: No Bipolar Disorder: Yes Anxiety: Yes Depression: Yes Cancer: No Cardiovascular Problems: No Diabetes: No Diminished Hearing: No Endocrine: No Genitourinary: No Immune Disorder: No Insomnia: Yes Musculoskeletal: No Neurologic: No Psychiatric: Yes Reproductive: No Respiratory: No Schizophrenia: Yes (affective ) Seizures: No Tetanus Vaccination: Unknown Influenza Vaccination: No Past Surgical History Surgical History: No Previous Surgery Social History Alcohol Use: Yes (PT ADMITS TO DRINKING 8 BEERS DAILY, ETOH ABUSE ) Tobacco Use: Yes (4-5 cigs per day) Substance Use: Yes (cocaine) Allergies-Medications (Allergen,Severity, Reaction): Coded Allergies: No Known Allergies (Unverified Allergy, Unknown, 06/29/17) Per pt. Reported Meds & Prescriptions Reported Meds & Active Scripts Active Latuda (Lurasidone) 40 Mg Tab 40 Mg PO DAILY@1700 Reported Zyprexa (Olanzapine) 10 Mg Tab 10 Mg PO HS Trileptal (Oxcarbazepine) 300 Mg Tab 300 Mg PO BID Review of Systems Except as stated in HPI: all other systems reviewed are Neg General / Constitutional: No: Fever Eyes: No: Visual changes HENT: No: Headaches Cardiovascular: Positive: Palpitations, No: Chest Pain or Discomfort Respiratory: No: Shortness of Breath Gastrointestinal: Positive: Nausea, Vomiting, Abdominal Pain, Indigestion, Loss of Appetite Genitourinary: No: Dysuria Musculoskeletal: No: Pain Skin: No Rash Neurologic: No: Weakness, Focal Abnormalities, Change in Mentation, Slurred Speech, Sensory Disturbance Psychiatric: Positive: Anxiety, Depression, Mood Disorder, Substance Abuse, No : Suicidal Ideations Endocrine: No: Polydipsia Hematologic/Lymphatic: No: Easy Bruising Physical Exam Narrative General: The patient is a well-developed well-nourished male in no acute distress. Head and Neck exam: Head is normocephalic atraumatic. Eyes: EOMI, pupils are equal round and reactive to light. Nose: Midline septum with pink mucous membranes Mouth: Dentition unremarkable. Moist mucus membranes. Posterior oropharynx is not erythematous. No tonsillar hypertrophy. Uvula midline. Airway patent. Neck: No palpable lymphadenopathy. No nuchal rigidity. No thyromegaly. Cardiovascular: Regular rate and rhythm without murmurs, gallops, or rubs. Lungs: Clear to auscultation bilaterally. No wheezes, rhonchi, or rales. Abdomen: Soft, with reported tenderness on palpation of the midepigastric area. No other tenderness on palpation of the other quadrants of the abdomen. No tenderness on palpation of McBurney's point. No guarding, rebound, or rigidity. Negative Tabares's sign. Extremities: No clubbing, cyanosis, or edema. 2+ pulses in all 4 extremities. No calf tenderness on palpation. Back: No spinous process tenderness to palpation. No costovertebral angle tenderness to palpation. Neurologic Exam: Grossly nonfocal. Skin Exam: No rash noted. Intact skin that is warm and dry. Data Data Last Documented VS Vital Signs Date Time Temp Pulse Resp B/P (MAP) Pulse Ox O2 Delivery O2 Flow Rate FiO2 07/17/17 05:34 84 16 109/74 (86) 98 Room Air 07/17/17 03:09 98.7 Orders Orders Electrocardiogram (07/17/17 03:26) Complete Blood Count With Diff (07/17/17 03:26) Comprehensive Metabolic Panel (07/17/17 03:26) Creatine Kinase (Cpk) (07/17/17 03:26) Ckmb (Isoenzyme) Profile (07/17/17 03:26) Troponin I (07/17/17 03:26) Lipase (07/17/17 03:26) Urinalysis - C+S If Indicated (07/17/17 03:26) Magnesium (Mg) (07/17/17 03:26) Thyroid Stimulating Hormone (07/17/17 03:26) Chest, Single Ap (07/17/17 03:26) Iv Access Insert/Monitor (07/17/17 03:26) Ecg Monitoring (07/17/17 03:26) Oximetry (07/17/17 03:26) Psych Screen (07/17/17 03:26) Drug Screen, Random Urine (07/17/17 03:26) Alcohol (Ethanol) (07/17/17 03:26) Salicylates (Aspirin) (07/17/17 03:26) Tylenol (Acetaminophen) (07/17/17 03:26) CKMB (07/17/17 03:40) CKMB% (07/17/17 03:40) Sodium Chlor 0.9% 1000 Ml Inj (Ns 1000 M (07/17/17 05:15) Ondansetron Inj (Zofran Inj) (07/17/17 05:15) Pantoprazole Inj (Protonix Inj) (07/17/17 05:15) Labs Laboratory Tests Test 07/17/17 03:40 White Blood Count 6.2 TH/MM3 Red Blood Count 5.14 MIL/MM3 Hemoglobin 16.7 GM/DL Hematocrit 47.6 % Mean Corpuscular Volume 92.6 FL Mean Corpuscular Hemoglobin 32.6 PG Mean Corpuscular Hemoglobin Concent 35.2 % Red Cell Distribution Width 13.3 % Platelet Count 230 TH/MM3 Mean Platelet Volume 7.8 FL Neutrophils (%) (Auto) 53.4 % Lymphocytes (%) (Auto) 35.8 % Monocytes (%) (Auto) 8.9 % Eosinophils (%) (Auto) 0.9 % Basophils (%) (Auto) 1.0 % Neutrophils # (Auto) 3.3 TH/MM3 Lymphocytes # (Auto) 2.2 TH/MM3 Monocytes # (Auto) 0.6 TH/MM3 Eosinophils # (Auto) 0.1 TH/MM3 Basophils # (Auto) 0.1 TH/MM3 CBC Comment DIFF FINAL Differential Comment Urine Color YELLOW Urine Turbidity CLEAR Urine pH 6.0 Urine Specific [place] 1.026 Urine Protein 30 mg/dL Urine Glucose (UA) NEG mg/dL Urine Ketones TRACE mg/dL Urine Occult Blood NEG Urine Nitrite NEG Urine Bilirubin NEG Urine Urobilinogen 2.0 MG/DL Urine Leukocyte Esterase NEG Urine RBC 1 /hpf Urine WBC LESS THAN 1 /hpf Urine Squamous Epithelial Cells <1 /hpf Urine Hyaline Casts 6 /lpf Urine Mucus MOD /lpf Microscopic Urinalysis Comment CULT NOT INDICATED Blood Urea Nitrogen 8 MG/DL Creatinine 1.03 MG/DL Random Glucose 96 MG/DL Total Protein 7.7 GM/DL Albumin 3.8 GM/DL Calcium Level 8.4 MG/DL Magnesium Level 2.2 MG/DL Alkaline Phosphatase 89 U/L Aspartate Amino Transf (AST/SGOT) 44 U/L Alanine Aminotransferase (ALT/SGPT) 49 U/L Total Bilirubin 0.8 MG/DL Sodium Level 138 MEQ/L Potassium Level 3.5 MEQ/L Chloride Level 103 MEQ/L Carbon Dioxide Level 26.9 MEQ/L Anion Gap 8 MEQ/L Estimat Glomerular Filtration Rate 81 ML/MIN Total Creatine Kinase 143 U/L Creatine Kinase MB 0.6 NG/ML Troponin I LESS THAN 0.02 NG/ML Lipase 215 U/L Thyroid Stimulating Hormone 3rd Gen 2.090 uIU/ML Salicylates Level LESS THAN 1.7 MG/DL Urine Opiates Screen NEG Acetaminophen Level LESS THAN 2.0 MCG/ML Urine Barbiturates Screen NEG Urine Amphetamines Screen NEG Urine Benzodiazepines Screen NEG Urine Cocaine Screen POS Urine Cannabinoids Screen NEG Ethyl Alcohol Level LESS THAN 3 MG/DL MDM Medical Decision Making Medical Screen Exam Complete: Yes Emergency Medical Condition: Yes Medical Record Reviewed: Yes Differential Diagnosis Alcohol-related gastritis, versus pancreatitis, versus biliary colic, versus hepatitis, versus substance induced mood disorder, versus exacerbation of psychiatric disorder, versus acute coronary syndrome Narrative Course During the course of the patients emergency department visit, the patients history, examination, and differential diagnosis were reviewed with the patient. The patient was placed on a bus monitor with oximetry and frequent blood pressure monitoring. The patient had IV access obtained and blood work sent for analysis. The patient was initially provided normal saline 1 L IV fluid bolus, Zofran 4 mg IV, Protonix 40 mg IV. The patients laboratory studies were reviewed and remarkable for white count of 6.2, hemoglobin 16.7, platelets of 2:30, 8.9 monocytes, CMP is remarkable for a GFR of 81, calcium 8.4, AST 44, cardiac enzymes within normal limits, lipase 215 , TSH 2.09, urine drug screen is positive for cocaine, salicylate is less than 1.7, acetaminophen less than 2, alcohol level less than 3. Urinalysis shows 30 protein, trace ketones, otherwise unremarkable. Radiology studies were reviewed and remarkable for a chest x-ray that shows no acute abnormality. I explained that [facility] is not a detox center, however the local detox center is the [facility]. The upper caser gave the patient information regarding its location. The patient is requesting a psychiatric screen. The patient has been medically cleared for evaluation by the psychiatric screener. Diagnosis Primary Impression: Palpitations Additional Impressions: Alcohol abuse Psychiatric disorder Gastritis Qualified Codes: K29.20 - Alcoholic gastritis without bleeding Farzana Clarie MD Jul 17, 2017 04:15
[2017-07-17 04:25] LABS: ALBUMIN 3.8 GM/DL (3.4-5.0); ALKALINE PHOSPHATASE 89 U/L (45-117); ALT (GPT) 49 U/L (12-78); AST (GOT) 44 U/L (15-37); BLOOD UREA NITROGEN 8 MG/DL (7-18); CALCIUM 8.4 MG/DL (8.5-10.1); CHLORIDE 103 MEQ/L (98-107); CREATININE 1.03 MG/DL (0.60-1.30); GLOMERULAR FILTRATION RATE 81 ML/MIN (>89); GLUCOSE,RANDOM 96 MG/DL (74-106); LIPASE 215 U/L (73-393); MAGNESIUM 2.2 MG/DL (1.5-2.5); TOTAL BILIRUBIN ADULT 0.8 MG/DL (0.2-1.0); TOTAL PROTEIN 7.7 GM/DL (6.4-8.2); TROPONIN I LESS THAN 0.02 NG/ML (0.02-0.05)
[2017-07-17 04:26] LABS: ACETAMINOPHEN LESS THAN 2.0 MCG/ML (10.0-30.0); BICARBONATE 26.9 MEQ/L (21.0-32.0); SODIUM (NA) 138 MEQ/L (136-145)
[2017-07-17] MEDS ORDERED: PANTOPRAZOLE SODIUM 40 MG VIAL IV PUSH ONE (05:15)
[2017-07-17] MEDS ORDERED: ONDANSETRON HCL 4 MG/2 ML VIAL IV ONE (05:15)
[2017-07-17] MEDS ORDERED: SODIUM CHLOR 0.9% 1000 ML INJ 1,000 ML IV ONE (05:15)
[2017-07-17 05:34] VITALS: BP 109/74; PULSE 84; RESP 16; O2SAT 98
[2017-07-17 11:00] VITALS: BP 112/64; PULSE 82; RESP 17; O2SAT 97
[2017-07-17 14:26] VITALS: BP 130/76; PULSE 94; RESP 18; TEMP 98.8; O2SAT 96
--- NOTE | 2017-07-17 15:25 | PD ---
History of Present Illness Chief Complaint: Abdominal Pain Time Seen by Provider: 15:00 Travel History International Travel<30 Days: No Contact w/Intl Traveler<30days: No Known affected area: No Legal Status Legal Status: Voluntary History of Present Illness: History of Present Illness HPI The patient is a 36 year old male with reported history of schizoaffective disorder bipolar type, alcohol abuse, cocaine abuse who presents to the [facility] emergency department under voluntary status with a history of palpitations, abdominal pain, as well as reporting worsening psychiatric problems. ED documentation is reviewed and partially included in this report: " The patient denies having any suicidal ideations, however he reports that he is abusing alcohol daily and he feels like, "I am drinking myself to ". The patient is requesting assistance with getting into a detox program." Electronic medical record is reviewed. Current toxicology is positive for cocaine. Patient was last hospitalized here at [facility] psychiatry unit in June 29 and discharged July 03, 2016. The patient is seen in J pod. He is alert and oriented, engaging and cooperative. His speech is clear, logical and coherent. He is clinically sober. There is no evidence of any psychosis, no brandon or hypomania. Denies any suicidal or homicidal ideation, intent or plan. No significant depression or anxiety symptoms are noted. He states that he feels lonely and started to drink again. He also admits to having been using cocaine whenever he can afford it. He tells me t "I want to stop and I came here to get myself checked out to get some help." He also tells me that he did not follow-up with any starch care after he left the hospital. He has not connected with any AA groups and has not been to [facility] and tells me that he has not done so because" I am lazy." PFSH Past Medical History Asthma: No Bipolar Disorder: Yes Anxiety: Yes Depression: Yes Cancer: No Cardiovascular Problems: No Diabetes: No Diminished Hearing: No Endocrine: No Genitourinary: No Immune Disorder: No Insomnia: Yes Musculoskeletal: No Neurologic: No Psychiatric: Yes Reproductive: No Respiratory: No Schizophrenia: Yes (affective ) Seizures: No Tetanus Vaccination: Unknown Influenza Vaccination: No Past Surgical History Surgical History: No Previous Surgery Psychiatric History Psychiatric History Hx Psychiatric Treatment: Patient has dx of bipolar and schizoaffective. Reports at least 10 lifetime psychiatric hospitalizations. History of Inpatient Treatment: Yes Guns or firearms in home: No Social History Born and raised in [place]. Moved to [place] approximately 2 months ago. Is single. Unemployed. Hx Alcohol Use: Yes (PT ADMITS TO DRINKING 8 BEERS DAILY, ETOH ABUSE ) Hx Tobacco Use: Yes (4-5 cigs per day) Hx Substance Use: Yes (cocaine) Substance Use Type: Alcohol, Cocaine Other Substances Used: Patient states he drinks 8 beers every day. Hx of Substance Use Treatment: Yes Family Psychiatric History Negative Allergies-Medications (Allergen,Severity, Reaction): Coded Allergies: No Known Allergies (Unverified Allergy, Unknown, 06/29/17) Per pt. Reported Meds & Prescriptions Reported Meds & Active Scripts Active Latuda (Lurasidone) 40 Mg Tab 40 Mg PO DAILY@1700 Reported Zyprexa (Olanzapine) 10 Mg Tab 10 Mg PO HS Trileptal (Oxcarbazepine) 300 Mg Tab 300 Mg PO BID Review of Systems Cardiovascular: COMPLAINS OF: Chest pain Gastrointestinal: COMPLAINS OF: Abdominal pain Except as stated in HPI: all other systems reviewed are Neg Mental Status Examination Appearance: Appropriate Consciousness: Alert Orientation: x4 Motor Activity: Normal gait Speech: Unremarkable Language: Adequate Fund of Knowledge: Adequate Attention and Concentration: Adequate Memory: Unremarkable Mood: Appropriate Affect: Appropriate Thought Process & Associations: Intact, Logical, Goal directed Thought Content: Appropriate Hallucination Type: None Delusion Type: None Suicidal Ideation: No Suicidal Plan: No Suicidal Intention: No Homicidal Ideation: No Homicidal Plan: No Insight: Poor MDM Medical Decision Making Medical Record Reviewed: Yes Assessment/Plan 36-year-old male with history of cocaine and alcohol use, reported history of schizoaffective disorder bipolar type, who presents to the ED for evaluation of multiple physical complaints as well as complaints of increasing psychiatric symptomatology. The patient reports he has continued to drinking approximately 8 beers per day as well as uses cocaine. He has not followed up with discharge plan after his inpatient treatment here. At this time he is not psychotic and not manic. He is not suicidal or homicidal and is here requesting help getting into a detox facility. He is provided with the information on [facility] and how to access those services. He is also given bus passes in order to get to [facility]. He does not meet criteria for [place] act or for inpatient psychiatric hospitalization at this time. He is provided psychoeducation. Psychiatrically clear for discharge from ED. Orders Orders Electrocardiogram (07/17/17 03:26) Complete Blood Count With Diff (07/17/17 03:26) Comprehensive Metabolic Panel (07/17/17 03:26) Creatine Kinase (Cpk) (07/17/17 03:26) Ckmb (Isoenzyme) Profile (07/17/17 03:26) Troponin I (07/17/17 03:26) Lipase (07/17/17 03:26) Urinalysis - C+S If Indicated (07/17/17 03:26) Magnesium (Mg) (07/17/17 03:26) Thyroid Stimulating Hormone (07/17/17 03:26) Chest, Single Ap (07/17/17 03:26) Iv Access Insert/Monitor (07/17/17 03:26) Ecg Monitoring (07/17/17 03:26) Oximetry (07/17/17 03:26) Psych Screen (07/17/17 03:26) Drug Screen, Random Urine (07/17/17 03:26) Alcohol (Ethanol) (07/17/17 03:26) Salicylates (Aspirin) (07/17/17 03:26) Tylenol (Acetaminophen) (07/17/17 03:26) CKMB (07/17/17 03:40) CKMB% (07/17/17 03:40) Sodium Chlor 0.9% 1000 Ml Inj (Ns 1000 M (07/17/17 05:15) Ondansetron Inj (Zofran Inj) (07/17/17 05:15) Pantoprazole Inj (Protonix Inj) (07/17/17 05:15) Diet Regular Basic (07/17/17 Breakfast) Results Vital Signs Date Time Temp Pulse Resp B/P (MAP) Pulse Ox O2 Delivery O2 Flow Rate FiO2 07/17/17 14:26 98.8 94 18 130/76 (94) 96 Room Air 07/17/17 12:15 1/23/18 11:00 82 17 112/64 (80) 97 Room Air 07/17/17 05:34 84 16 109/74 (86) 98 Room Air 07/17/17 03:29 97 Room Air 07/17/17 03:09 98.7 86 16 136/81 (99) 98 Laboratory Tests Test 07/17/17 03:40 White Blood Count 6.2 Red Blood Count 5.14 Hemoglobin 16.7 Hematocrit 47.6 Mean Corpuscular Volume 92.6 Mean Corpuscular Hemoglobin 32.6 Mean Corpuscular Hemoglobin Concent 35.2 Red Cell Distribution Width 13.3 Platelet Count 230 Mean Platelet Volume 7.8 Neutrophils (%) (Auto) 53.4 Lymphocytes (%) (Auto) 35.8 Monocytes (%) (Auto) 8.9 Eosinophils (%) (Auto) 0.9 Basophils (%) (Auto) 1.0 Neutrophils # (Auto) 3.3 Lymphocytes # (Auto) 2.2 Monocytes # (Auto) 0.6 Eosinophils # (Auto) 0.1 Basophils # (Auto) 0.1 CBC Comment DIFF FINAL Differential Comment Urine Color YELLOW Urine Turbidity CLEAR Urine pH 6.0 Urine Specific [place] 1.026 Urine Protein 30 Urine Glucose (UA) NEG Urine Ketones TRACE Urine Occult Blood NEG Urine Nitrite NEG Urine Bilirubin NEG Urine Urobilinogen 2.0 Urine Leukocyte Esterase NEG Urine RBC 1 Urine WBC LESS THAN 1 Urine Squamous Epithelial Cells <1 Urine Hyaline Casts 6 Urine Mucus MOD Microscopic Urinalysis Comment CULT NOT INDICATED Blood Urea Nitrogen 8 Creatinine 1.03 Random Glucose 96 Total Protein 7.7 Albumin 3.8 Calcium Level 8.4 Magnesium Level 2.2 Alkaline Phosphatase 89 Aspartate Amino Transf (AST/SGOT) 44 Alanine Aminotransferase (ALT/SGPT) 49 Total Bilirubin 0.8 Sodium Level 138 Potassium Level 3.5 Chloride Level 103 Carbon Dioxide Level 26.9 Anion Gap 8 Estimat Glomerular Filtration Rate 81 Total Creatine Kinase 143 Creatine Kinase MB 0.6 Troponin I LESS THAN 0.02 Lipase 215 Thyroid Stimulating Hormone 3rd Gen 2.090 Salicylates Level LESS THAN 1.7 Urine Opiates Screen NEG Acetaminophen Level LESS THAN 2.0 Urine Barbiturates Screen NEG Urine Amphetamines Screen NEG Urine Benzodiazepines Screen NEG Urine Cocaine Screen POS Urine Cannabinoids Screen NEG Ethyl Alcohol Level LESS THAN 3 Diagnosis Primary Impression: Substance abuse Additional Impression: Adjustment disorder Psychiatrically Cleared: Yes Additional Instructions: Follow up with [facility] Disposition: 01 DISCHARGE HOME Condition: Stable Problem Qualifiers Additional Impression: Adjustment disorder Qualified Codes: F43.20 - Adjustment disorder, unspecified Jaylyn De Souza Jul 17, 2017 15:25
--- NOTE | 2017-07-17 15:35 | PD ---
Physical Exam Time Seen by Provider: 15:33 MCKENNA Lopez has evaluated the patient and cleared the patient for discharge. Data Data Last Documented VS Vital Signs Date Time Temp Pulse Resp B/P (MAP) Pulse Ox O2 Delivery O2 Flow Rate FiO2 07/17/17 14:26 98.8 94 18 130/76 (94) 96 Room Air Orders Orders Electrocardiogram (07/17/17 03:26) Complete Blood Count With Diff (07/17/17 03:26) Comprehensive Metabolic Panel (07/17/17 03:26) Creatine Kinase (Cpk) (07/17/17 03:26) Ckmb (Isoenzyme) Profile (07/17/17 03:26) Troponin I (07/17/17 03:26) Lipase (07/17/17 03:26) Urinalysis - C+S If Indicated (07/17/17 03:26) Magnesium (Mg) (07/17/17 03:26) Thyroid Stimulating Hormone (07/17/17 03:26) Chest, Single Ap (07/17/17 03:26) Iv Access Insert/Monitor (07/17/17 03:26) Ecg Monitoring (07/17/17 03:26) Oximetry (07/17/17 03:26) Psych Screen (07/17/17 03:26) Drug Screen, Random Urine (07/17/17 03:26) Alcohol (Ethanol) (07/17/17 03:26) Salicylates (Aspirin) (07/17/17 03:26) Tylenol (Acetaminophen) (07/17/17 03:26) CKMB (07/17/17 03:40) CKMB% (07/17/17 03:40) Sodium Chlor 0.9% 1000 Ml Inj (Ns 1000 M (07/17/17 05:15) Ondansetron Inj (Zofran Inj) (07/17/17 05:15) Pantoprazole Inj (Protonix Inj) (07/17/17 05:15) Diet Regular Basic (07/17/17 Breakfast) Labs Laboratory Tests Test 07/17/17 03:40 White Blood Count 6.2 TH/MM3 Red Blood Count 5.14 MIL/MM3 Hemoglobin 16.7 GM/DL Hematocrit 47.6 % Mean Corpuscular Volume 92.6 FL Mean Corpuscular Hemoglobin 32.6 PG Mean Corpuscular Hemoglobin Concent 35.2 % Red Cell Distribution Width 13.3 % Platelet Count 230 TH/MM3 Mean Platelet Volume 7.8 FL Neutrophils (%) (Auto) 53.4 % Lymphocytes (%) (Auto) 35.8 % Monocytes (%) (Auto) 8.9 % Eosinophils (%) (Auto) 0.9 % Basophils (%) (Auto) 1.0 % Neutrophils # (Auto) 3.3 TH/MM3 Lymphocytes # (Auto) 2.2 TH/MM3 Monocytes # (Auto) 0.6 TH/MM3 Eosinophils # (Auto) 0.1 TH/MM3 Basophils # (Auto) 0.1 TH/MM3 CBC Comment DIFF FINAL Differential Comment Urine Color YELLOW Urine Turbidity CLEAR Urine pH 6.0 Urine Specific [place] 1.026 Urine Protein 30 mg/dL Urine Glucose (UA) NEG mg/dL Urine Ketones TRACE mg/dL Urine Occult Blood NEG Urine Nitrite NEG Urine Bilirubin NEG Urine Urobilinogen 2.0 MG/DL Urine Leukocyte Esterase NEG Urine RBC 1 /hpf Urine WBC LESS THAN 1 /hpf Urine Squamous Epithelial Cells <1 /hpf Urine Hyaline Casts 6 /lpf Urine Mucus MOD /lpf Microscopic Urinalysis Comment CULT NOT INDICATED Blood Urea Nitrogen 8 MG/DL Creatinine 1.03 MG/DL Random Glucose 96 MG/DL Total Protein 7.7 GM/DL Albumin 3.8 GM/DL Calcium Level 8.4 MG/DL Magnesium Level 2.2 MG/DL Alkaline Phosphatase 89 U/L Aspartate Amino Transf (AST/SGOT) 44 U/L Alanine Aminotransferase (ALT/SGPT) 49 U/L Total Bilirubin 0.8 MG/DL Sodium Level 138 MEQ/L Potassium Level 3.5 MEQ/L Chloride Level 103 MEQ/L Carbon Dioxide Level 26.9 MEQ/L Anion Gap 8 MEQ/L Estimat Glomerular Filtration Rate 81 ML/MIN Total Creatine Kinase 143 U/L Creatine Kinase MB 0.6 NG/ML Troponin I LESS THAN 0.02 NG/ML Lipase 215 U/L Thyroid Stimulating Hormone 3rd Gen 2.090 uIU/ML Salicylates Level LESS THAN 1.7 MG/DL Urine Opiates Screen NEG Acetaminophen Level LESS THAN 2.0 MCG/ML Urine Barbiturates Screen NEG Urine Amphetamines Screen NEG Urine Benzodiazepines Screen NEG Urine Cocaine Screen POS Urine Cannabinoids Screen NEG Ethyl Alcohol Level LESS THAN 3 MG/DL MDM Supervised Visit with EDER: No Narrative Course Jaylyn, PHYSICS TECHNICIAN has evaluated the patient and cleared the patient for discharge.. Patient contracts safety. Denies suicidal or homicidal ideations. Patient will be provided community resource packet to [facility] for follow-up. Has friends and family for support. Patient was medically cleared by alternate provider prior to psych screening. Patient has been evaluated by psychiatry and and is now cleared for discharge. Diagnosis Primary Impression: Palpitations Additional Impressions: Alcohol abuse Gastritis Qualified Codes: K29.20 - Alcoholic gastritis without bleeding Psychiatric disorder Referrals: [facility] (Out patient) [facility] Primary Care Physician Psychiatrist Janneth SHEPPARD Behavioral Patient Instructions: Abuse of Alcohol (ED), Alcohol Dependence (ED), Alcohol Intoxication (ED), General Instructions Additional Instruction: Contract safety to your self and others Drinking alcohol Follow-up with Alcoholics Anonymous for community support Follow-up with psychiatry Follow-up with primary care provider Follow-up with [facility] Return to the emergency department immediately with worsening of symptoms Med/Other Pt SpecificInfo: No Change to Meds, No Meds Exist/No RX given Disposition: 01 DISCHARGE HOME Condition: Stable Maame Herndon Jul 17, 2017 15:35
--- NOTE | 2017-07-17 17:27 | EKG ---
Date Performed: 07/17/2017 Time Performed: 03:11:32 PTAGE: 36 years EKG: Sinus rhythm POSSIBLE LEFT ATRIAL ENLARGEMENT PATTERN CONSISTENT WITH PULMONARY DISEASE INCOMPLETE RIGHT BUNDLE B RANCH BLOCK POSSIBLE RIGHT VENTRICULAR HYPERTROPHY ABNORMAL ECG NO PREVIOUS TRACING DOCTOR: Johny Oneil Interpretating Date/Time 07/17/2017 17:23:12
== END 2017-07-17 16:19 | disposition home or self-care (01) ==
LOC: NEPC 03:02 → NEPJ 16:19
DX: F43.22 Adjustment disorder with anxiety (principal); R00.2 Palpitations; K29.20 Alcoholic gastritis without bleeding; F10.10 Alcohol abuse, uncomplicated; F14.10 Cocaine abuse, uncomplicated; R94.31 Abnormal electrocardiogram [ECG] [EKG]; F25.0 Schizoaffective disorder, bipolar type; G47.00 Insomnia, unspecified; F17.210 Nicotine dependence, cigarettes, uncomplicated
CPT/HCPCS: 71045; 80053; 80307; 81001; 82550; 82552; 83690; 83735; 84443; 84484; 85025; 93005; 96361; 96374; 96375; 99285; C9113; J2405; J7030